=== PATIENT | female | born 1995 | race Hispanic/Latino ===

== ENCOUNTER 2018-08-04 14:20 | Emergency (ER) | payer SELFPAY ==
[2018-08-04 14:34] VITALS: O2SAT 100
--- NOTE | 2018-08-04 15:37 | ED PDOC ---
HPI: Seizure <Robin Friend - Last Filed: 08/06/18 13:55> Chief Complaint (Provider): Seizure History Per: Patient History/Exam Limitations: no limitations Recent Seizure Activity Began: Hours Ago: (1) Number Of Seizures: One Additional Complaint(s): 23 y/o female presents to the ED due to seizure that happened 1 hour ago. Patient states she was found by her roommate. She reports she has regular and frequent seizures due to having epilepsy and takes Topomax and motrogin daily. She states she gets regular headache after having seizures. Patient denies any other injuries at this time. PMD: none provided <Heriberto Zayas A - Last Filed: 08/07/18 08:32> Time Seen by Provider: 08/04/18 15:08 Chief Complaint (Nursing): Seizure Past Medical History Vital Signs: Last Vital Signs Temp 98.8 F 08/04/18 18:07 Pulse 90 08/04/18 18:07 Resp 18 08/04/18 18:07 BP 116/77 08/04/18 18:07 Pulse Ox 100 08/04/18 18:07 <Robin Friend - Last Filed: 08/06/18 13:55> Reviewed: Historical Data, Nursing Documentation, Vital Signs Vital Signs: Last Vital Signs Temp 99.3 F 08/04/18 14:31 Pulse 114 H 08/04/18 14:31 Resp 20 08/04/18 14:31 BP 106/62 08/04/18 14:31 Pulse Ox 100 08/04/18 14:31 - Medical History PMH: Anemia, Seizures - Surgical History Surgical History: No Surg Hx - Family History Family History: States: No Known Family Hx - Immunization History Hx Tetanus Toxoid Vaccination: Yes Hx Influenza Vaccination: Yes Hx Pneumococcal Vaccination: Yes <Heriberto Zayas A - Last Filed: 08/07/18 08:32> - Home Medications Home Medications: Ambulatory Orders Medication Instructions Recorded Sulfamethoxazole/Trimethoprim 1 tab PO BID #6 tab 08/06/18 [Bactrim DS 800 mg-160 mg] - Allergies Allergies/Adverse Reactions: Allergies Allergy/AdvReac Type Severity Reaction Status Date / Time amoxicillin Allergy RASH Verified 08/04/18 14:29 Review of Systems ROS Statement: Except As Marked, All Systems Reviewed And Found Negative <Ayana Zayasm A - Last Filed: 08/07/18 08:32> Physical Exam - Reviewed Nursing Documentation Reviewed: Yes Vital Signs Reviewed: Yes - Physical Exam Appears: Positive for: Well, Non-toxic, No Acute Distress Head Exam: Positive for: ATRAUMATIC, NORMAL INSPECTION, NORMOCEPHALIC Skin: Positive for: Normal Color, Warm, DRY Eye Exam: Positive for: EOMI, Normal appearance, PERRL ENT: Positive for: Normal ENT Inspection Neck: Positive for: Normal, Painless ROM, Supple Cardiovascular/Chest: Positive for: Regular Rate, Rhythm Respiratory: Positive for: Normal Breath Sounds. Negative for: Respiratory Distress Gastrointestinal/Abdominal: Positive for: Normal Exam, Soft. Negative for: Tenderness Back: Positive for: Normal Inspection. Negative for: L CVA Tenderness, R CVA Tenderness Extremity: Positive for: Normal ROM. Negative for: Deformity Neurological/Psych: Positive for: Awake, Alert, Normal Tone, Oriented (x3). Negative for: Motor/Sensory Deficits <ChanaYarielrona A - Last Filed: 08/07/18 08:32> - Laboratory Results Result Diagrams: 08/04/18 15:30 08/04/18 15:30 <Robin Friend - Last Filed: 08/06/18 13:55> - Laboratory Results Result Diagrams: 08/04/18 15:30 08/04/18 15:30 - ECG O2 Sat by Pulse Oximetry: 100 - Progress Re-evaluation Time: 17:56 Condition: Re-examined, Improved <ChanaYarielrona A - Last Filed: 08/07/18 08:32> Medical Decision Making Medical Decision Making: Time:1516 Initial Impression: Frequent seizures and head injury Initial Plan: -EKG -BMP -Magnesium -Urine -Urine Dip -CBC -Lamictal 800mg PO -Troponin 200mg PO Epilepsy and head injury. Rule out intracranial bleeding. provider suggested CT but patient refuses CT. Patient think she doesn't need CT. Scribe Attestation: Documented by Vicky Ayala, acting as a scribe for Heriberto Zayas Provider Scribe Attestation: All medical record entries made by the Scribe were at my direction and personally dictated by me. I have reviewed the chart and agree that the record accurately reflects my personal performance of the history, physical exam, medical decision making, and the department course for this patient. I have also personally directed, reviewed, and agree with the discharge instructions and disposition. <Heriberto Zayas - Last Filed: 08/07/18 08:32> Disposition <Robin Friend - Last Filed: 08/06/18 13:55> - Patient ED Disposition Is Patient to be Admitted: No Doctor Will See Patient In The: Office Counseled Patient/Family Regarding: Studies Performed, Diagnosis, Need For Followup - Disposition Disposition: Routine/Home Disposition Time: 17:56 <Heriberto Zayas - Last Filed: 08/07/18 08:32> - Clinical Impression Clinical Impression: Recurrent seizures, Headache - Disposition Referrals: Abdon Rachel MD [Staff Provider] - Condition: GOOD Additional Instructions: BARBARA HAYES, thank you for letting us take care of you today. Your provider was Heriberto Zayas MD and you were treated for HEAD PAIN. The emergency medical care you received today was directed at your acute symptoms. If you were prescribed any medication, please fill it and take as directed. It may take several days for your symptoms to resolve. Return to the Emergency Department if your symptoms worsen, do not improve, or if you have any other problems. Please contact your doctor or call one of the physicians/clinics you have been referred to that are listed on the Patient Visit Information form that is included in your discharge packet. Bring any paperwork you were given at dischar ge with you along with any medications you are taking to your follow up visit. Our treatment cannot replace ongoing medical care by a primary care provider outside of the emergency department. Thank you for allowing the [facility] team to be part of your care today. Prescriptions: Sulfamethoxazole/Trimethoprim [Bactrim DS 800 mg-160 mg] 1 tab PO BID #6 tab Instructions: Seizures, Headache, Adult (DC)
[2018-08-04 15:55] LABS: BASO % 0.4 % (0.0-2.0); EOS % 0.6 % (0.0-4.0); HEMOGLOBIN 12.6 g/dL (12.0-16.0); LYMPH # 0.7 K/uL (1.0-4.3); LYMPH % 9.1 % (20.0-40.0); MEAN CELL VOLUME 89.4 fl (81.0-99.0); MEAN CORPUSCULAR HEMOGLOBIN 30.2 pg (27.0-31.0); MEAN CORPUSCULAR HGB CONC 33.8 g/dL (33.0-37.0); MEAN PLATELET VOLUME 8.7 fl (7.2-11.7); MONO # 0.4 K/uL (0.0-0.8); MONO % 5.7 % (0.0-10.0); NEUT # 6.1 K/uL (1.8-7.0); NEUT % 84.2 % (50.0-75.0); PLATELET COUNT 276 K/uL (130-400); RBC 4.16 Mil/uL (3.80-5.20); RED CELL DISTRIBUTION WIDTH 13.8 % (11.5-14.5); WHITE BLOOD COUNT 7.2 K/uL (4.8-10.8)
[2018-08-04 15:58] LABS: BLOOD UREA NITROGEN 12 mg/dl (7-17); CALCIUM 9.3 mg/dL (8.4-10.2); GFR NON-AFRICAN AMERICAN > 60
[2018-08-04 18:15] VITALS: BP 116/77; PULSE 90; RESP 18; TEMP 98.8
[2018-08-04 19:26] LABS: ANISOCYTOSIS SLIGHT; BANDS 1 % (0-2); EOSINOPHIL 1 % (0-7); LYMPHOCYTE 10 % (20-50); MONOCYTE 6 % (0-10); NEUTROPHIL 82 % (42-75); PLATELET ESTIMATE NORMAL (NORMAL); TOTAL CELLS COUNTED 100
--- NOTE | 2018-08-05 07:18 | CARD ---
APPROVED REPORT Date of service: 08/04/2018 EKG Measurement Heart [id number] [id number] <Conclusion> Normal sinus rhythm Normal ECG
== END 2018-08-04 18:07 | disposition home or self-care (01) ==
LOC: H.ER 14:20
DX: G40.909 Epilepsy, unspecified, not intractable, without status epilepticus (principal); S09.90XA Unspecified injury of head, initial encounter; W19.XXXA Unspecified fall, initial encounter; Y92.89 Other specified places as the place of occurrence of the external cause